=== PATIENT | male | born 1975 | race Caucasian/White ===

== ENCOUNTER 2024-03-10 14:31 | Emergency (ER) | payer BC, SELFPAY ==
[2024-03-10 14:37] VITALS: BP 162/99; PULSE 110; RESP 19; TEMP 36.7; O2SAT 99; BMI 29.0
--- NOTE | 2024-03-10 15:01 | XR_ITS ---
Examination: CT brain head with intravenous. 2-D sagittal reconstructions. 2-D coronal reconstructions. Date and time of exam:March 10, 2024 at 1541 hrs. Indications: Headaches palpable mass behind the right ear noticed beginning 2 months ago CTDI: vol (mGy): 49.1 DLP: (mGycm):994 Technique: Axial sections of the brain have been obtained. 5 mm slice thickness images have been obtained. Intravenous contrast material has not been administered. Low dose protocols were performed. One or more of the following dose reduction techniques were used; automated exposure control, adjustment of the mA and/or KV according to patient size, use of iterative reconstruction technique. 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
[2024-03-10] MEDS: SODIUM CHLORIDE 0.9% 1000 ML 1,000 ML 125 ML IV ×2 (15:16→18:37)
[2024-03-10] MEDS: HYDROmorphone INJ 2 MG/ML VIAL 1 MG IVP ×4 (15:17→21:05)
[2024-03-10] MEDS: ONDANSETRON INJ 2 MG/ML INJ 2 ML 4 MG IV (15:18)
[2024-03-10 15:25] LABS: Basophils # (Auto) 0.1 Thou/mm3 (0.0-0.2); Basophils % (Auto) 1 % (0-2.5); Eosinophils # (Auto) 0.1 Thou/mm3 (0.0-0.5); Eosinophils % (Auto) 1 % (0-10); Hematocrit 46.7 % (41.0-53.0); Hemoglobin 16.5 g/dL (13.5-16.0); Immature Granulocytes % (Auto) 0 % (0-0); Immature Granulocytes Auto 0.04 Thou/mm3 (0.00-0.00); Lymphocytes # (Auto) 2.2 Thou/mm3 (1.0-4.8); Lymphocytes % (Auto) 19 % (10-50); Mean Corpuscular HGB Conc 35.3 g/dl (31.0-37.0); Mean Corpuscular Volume 96 fL (80-100); Monocytes # (Auto) 1.1 Thou/mm3 (0.0-0.8); Monocytes % (Auto) 9 % (0-12); Neutrophils # (Auto) 8.2 Thou/mm3 (1.8-7.7); Neutrophils % (Auto) 71 % (37-80); Nucleated Red Blood Cell % 0 /100 WBC (0); Platelet Count 183 Thou/mm3 (140-440); RDW Standard Deviation 44.5 fL (35.1-43.9); Red Blood Count 4.85 Miln/mm3 (4.50-5.90); White Blood Count 11.6 Thou/mm3 (3.8-10.6)
[2024-03-10 15:41] LABS: Partial Thromboplastin Time 27.1 Seconds (22.0-36.0); Prothrombin Time 11.4 Seconds (9.0-12.2)
[2024-03-10 15:43] VITALS: PULSE 110; RESP 20; O2SAT 98
[2024-03-10 15:44] LABS: Alanine Aminotransferase 28 U/L (10-49); Albumin, Serum 4.9 gm/dL (3.5-5.0); Albumin/Globulin Ratio 1.4 (1.2-2.2); Alkaline Phosphatase 95 U/L (46-116); Anion Gap 14 (7-16); Aspartate Amino Transferase 37 U/L (0-34); BUN/Creatinine Ratio 14 Ratio (12-20); Bilirubin,Total 0.6 mg/dL (0.3-1.2); Blood Urea Nitrogen 13 mg/dL (9-23); Calcium 10.1 mg/dL (8.3-10.6); Calcium (Corrected) 10.1 mg/dL (8.5-10.1); Carbon Dioxide 20.3 mMol/L (20.0-31.0); Chloride 101 mMol/L (98-107); Creatinine (Component) 0.9 mg/dL (0.6-1.3); Estimated Creatinine Clearance 99.6 mL/min (>60); Globulin 3.4 gm/dL (2.3-3.5); Glucose 152 mg/dL (74-106); Osmolality,Calculated 273 (275-295); Potassium 3.4 mMol/L (3.4-5.1); Sodium 135 mMol/L (136-145); Total Protein 8.3 gm/dL (5.7-8.2); eGFR > 60 See Note
[2024-03-10 16:21] VITALS: BP 173/95; PULSE 93; RESP 17; TEMP 36.8; O2SAT 99
[2024-03-10 17:26] VITALS: BP 157/84; PULSE 96; RESP 18; TEMP 36.6; O2SAT 96
--- NOTE | 2024-03-10 18:07 | PC.NURSE ---
[facility] CALLED FOR A REQUEST OF TRANSFER FOR NEURO SURGERY, IMAGES SENT, PACKET FAXED AND TALKED TO [facility] FROM TRANSFER CENTER
--- NOTE | 2024-03-10 20:27 | PD.EDADULT ---
ED General RME/HPI General Chief complaint: Headache Stated complaint: HEADACHE Time Seen by Provider: 03/10/24 14:58 Arrival date/time: 03/10/24 14:31 CC: Headache HPI patient had a bump on the back of his head behind his right ear which has a progressive increase in severity over the past 2 to 3 weeks. Patient states the pain is now become unbearable, patient presents to the ER via EMS who reports stable vital signs. The patient is awake alert oriented no focal deficits. Patient admits he has has rectal cancer stage IV I did not tolerate the last round of chemotherapy per Dr. Beavers's note. Related Data Home Medications ?Medication ?Instructions ?Recorded ?Confirmed trazodone 50 mg tablet 100 mg PO HS 09/11/23 03/10/24 Allergies Allergy/AdvReac Type Severity Reaction Status Date / Time bee venom protein (honey bee) Allergy Severe Anaphylaxis Verified 09/12/23 08:19 cetuximab Allergy Severe Back Pain Verified 09/12/23 08:19 Review of Systems Review of Systems Narrative Review of Systems: GEN: No fever, no chills, no weight loss EYES: No discharge, no visual changes, no pain HEENT: No ear pain, no congestion, no sore throat PULM: No shortness of breath, no cough, no congestion CV: No chest pain, no dyspnea on exertion, no palpitations GI: No nausea, no vomiting, no diarrhea, no pain, no constipation : No frequency, no urgency, no dysuria MUSC/SKEL: No joint pain, no back pain SKIN: No rash PSYCH: No hallucinations, no depression HEME/LYMPH: No easy bleeding or bruising tendencies NEURO: No weakness, + headache Past Medical History Past Medical History NEUROLOGIC: Negative Neurological Disorders or Seizures CARDIAC: Negative Cardiac Disorders or Congestive Heart Failure RESPIRATORY: Negative Chronic Obstructive Pulmonary Disease (COPD) or Asthma GASTROINTESTINAL: Positive Gastrointestinal Disorders, Colorectal Cancer, Gastroesophageal Reflux Disease and Obesity; Negative Hemorrhoids GENITOURINARY: Negative Genitourinary Disorders, Renal Disease or Kidney Stones MUSCULOSKELETAL: Negative Musculoskeletal Disorders ENDOCRINE: Negative Endocrine Disorders, Diabetes Mellitus Type 1 or Diabetes Mellitus Type 2 HEMATOLOGIC: Negative Blood Disorders or Sickle Cell Disease PSYCHO/SOCIAL: Positive Depression and Anxiety OTHER HISTORY: Positive Hospitalization (surgery), Chemotherapy, Radiation Therapy, Chicken Pox, Cancer (colon cx & liver cx) and Colorectal Cancer; Negative Autoimmune Disease, Shingles, Blood Transfusions, Blood Transfusion Reaction or Anesthesia Reactions Family History FAMILY HISTORY: Negative Family Psychiatric Problems, Family Respiratory Disorders, Family Cardiac Disorders, Family Gastrointestinal Problems, Family Cancer, Family Surgery or Family Anesthesia Reaction Surgical History SURGICAL: Positive Abdominal Surgery, Bowel Surgery (colon resection) and Vasectomy Social History SMOKING STATUS: Never smoker SUBSTANCE USE: does not use ED Exam Narrative Physical exam: [General: In moderate discomfort but not in any acute distress Head 3 x 3 cm bulging mass behind the right ear exquisitely tender to palpation soft, no surrounding erythema or edema. No other step-offs abrasions hematomas. HEENT: Eyes pupils are PERRLA EOMs are intact nose no rhinorrhea or otorrhea all other subsystems of HEENT are within acceptable limits Neck is supple nontender swallow symmetrical phonation is normal Chest equal chest rise nontender to palpation Respiratory: Clear to auscultation no wheezes crackles or rubs CV: Rate rhythm is regular no murmurs rubs or clicks Abdomen is distended secondary to body habitus soft nontender no masses positive bowel sounds all 4 quadrants Back: No CVA tenderness no spinous process tenderness from cervical spine thoracic and lumbar spine Skin: Intact no petechiae rash induration ulceration or crepitus Extremities: Moving all extremity against resistance cap refill less than 2 seconds neurosensory intact Neuro: Awake alert oriented x3 Glascow coma 15 no focal deficits] Course Quality Measures none Orders Category Date Time Status CT Screening NOW Care 03/10/24 15:02 Active Saline [Insert IV] NOW Care 03/10/24 15:[address] head/brain w con Stat Exams 03/10/24 15:01 Completed CBC Stat Lab 03/10/24 15:13 Completed CMP [Comprehensive Metabolic Panel] Stat Lab 03/10/24 15:13 Completed PT [Prothrombin Time with INR] Stat Lab 03/10/24 15:13 Completed PTT [Partial Thromboplastin Time] Stat Lab 03/10/24 15:13 Completed HYDROmorphone INJ [Dilaudid Inj] Med 03/10/24 15:01 Discontinued 1 mg IVP X1 ONE HYDROmorphone INJ [Dilaudid Inj] Med 03/10/24 16:19 Discontinued 1 mg IVP X1 ONE HYDROmorphone INJ [Dilaudid Inj] Med 03/10/24 19:27 Discontinued 1 mg IVP X1 ONE HYDROmorphone INJ [Dilaudid Inj] Med 03/10/24 20:53 Discontinued 1 mg IVP X1 ONE Ondansetron Inj [Zofran Inj] Med 03/10/24 15:01 Discontinued 4 mg IV X1 ONE Sodium Chloride 0.9% 1000 ml [Ns] 1,000 ml Med 03/10/24 15:02 Active IV 125 mls/hr Vital Signs Vital signs: Vital Signs Temperature 98.0 F 03/10/24 14:37 Pulse Rate 110 H 03/10/24 14:37 Respiratory Rate 19 03/10/24 14:37 Blood Pressure 162/99 H 03/10/24 14:37 Pulse Oximetry (%) 99 03/10/24 14:37 Oxygen Delivery Method Room Air 03/10/24 14:37 [facility] Patient data External records reviewed:: [facility] previous records and EMS form Clinical information provided by:: patient and EMS Social determinants that could affect healthcare access:: none Patient has the following chronic illnesses:: Rectal cancer stage IV with metastasis How is presenting disease/condition affected by chronic disease/condition?: exacerbated by Evaluation data The following diagnostics were reviewed and interpreted by me:: lab results and radiology exam(s) Lab and/or radiology exams considered but not ordered:: CBC shows a leukocytosis of 11.5 no anemia thrombocytopenia Coags show an INR of 1.0 within acceptable limits CMP shows elevated glucose of 152 mildly elevated sodium no other electrolyte imbalances renal impairment transaminitis or T. bili elevation. CT as interpreted by me read by radiology shows the patient has a large soft tissue likely metastatic mass destroying the right occipital bone extending intracranial and extending externally almost to the surface of the skin measuring 36 x 23 mm. Interpretation Summary: Patient needs neurosurgery at first calls made to [facility] in [place] at 2030 awaiting callback. Medications Medications considered but not ordered:: None Medication administrations:: Medication Administration History Sodium Chloride (Ns) 1,000 mls @ 125 mls/hr IV .Q8H LACIE Stop: 03/11/24 15:01 Last Admin: 03/10/24 18:37 Dose: 125 mls/hr Documented By: Infusion: 03/10/24 18:37 Dose: Infused Documented By: Admin: 03/10/24 15:16 Dose: 125 mls/hr Documented By: CATARINA Discontinued Medications Hydromorphone HCl (Hydromorphone Inj 2 Mg/Ml Vial) 1 mg IVP X1 ONE Stop: 03/10/24 15:02 Last Admin: 03/10/24 15:17 Dose: 1 mg Documented By: CATARINA Hydromorphone HCl (Hydromorphone Inj 2 Mg/Ml Vial) 1 mg IVP X1 ONE Stop: 03/10/24 16:20 Last Admin: 03/10/24 16:27 Dose: 1 mg Documented By: CATARINA Hydromorphone HCl (Hydromorphone Inj 2 Mg/Ml Vial) 1 mg IVP X1 ONE Stop: 03/10/24 19:28 Last Admin: 03/10/24 19:32 Dose: 1 mg Documented By: JIMBO Hydromorphone HCl (Hydromorphone Inj 2 Mg/Ml Vial) 1 mg IVP X1 ONE Stop: 03/10/24 20:54 Last Admin: 03/10/24 21:05 Dose: 1 mg Documented By: CATARINA Ondansetron HCl (Ondansetron Inj 2 Mg/Ml Inj 2 Ml) 4 mg IV X1 ONE; Protocol Stop: 03/10/24 15:02 Last Admin: 03/10/24 15:18 Dose: 4 mg Documented By: CATARINA None Consultations Consultation(s) initiated? (list below): No Diagnosis Differential Diagnosis ED Complaint MDM: Cerebral mass scalp abscess scalp cellulitis Most likely diagnosis given after review of the tests above:: Cerebral mass with bony erosion Admission Indicated Admission indicated?: indicated Explain why admission is indicated or not indicated:: Transfer Admission Request Was there a request for admission?: No Disposition Plan Disposition Plan: Transfer Medical Decision Making Differential Diagnosis Differential Diagnosis: Cerebral mass scalp abscess scalp cellulitis Lab Data 03/10/24 15:13 03/10/24 15:13 Labs: Lab Results 03/10/24 Range/Units 15:13 WBC 11.6 H (3.8-10.6) Thou/mm3 RBC 4.85 (4.50-5.90) Miln/mm3 Hgb 16.5 H (13.5-16.0) g/dL Hct 46.7 (41.0-53.0) % MCV 96 (80-100) fL MCH 34.0 (25.0-35.0) pg MCHC 35.3 (31.0-37.0) g/dl RDW Std Deviation 44.5 H (35.1-43.9) fL Plt Count 183 (140-440) Thou/mm3 Neut % (Auto) 71 (37-80) % Lymph % (Auto) 19 (10-50) % [place] % (Auto) 9 (0-12) % Eos % (Auto) 1 (0-10) % Baso % (Auto) 1 (0-2.5) % Neut # (Auto) 8.2 H (1.8-7.7) Thou/mm3 Lymph # (Auto) 2.2 (1.0-4.8) Thou/mm3 [place] # (Auto) 1.1 H (0.0-0.8) Thou/mm3 Eos # (Auto) 0.1 (0.0-0.5) Thou/mm3 Baso # (Auto) 0.1 (0.0-0.2) Thou/mm3 Immature Gran # (Auto) 0.04 H (0.00-0.00) Thou/mm3 Absolute Nucleated RBC 0.00 (0.00-0.00) Thou/mm3 Immature Gran % 0 (0-0) % Nucleated RBC % 0 (0) /100 WBC PT 11.4 (9.0-12.2) Seconds INR 1.0 (0.9-1.3) APTT 27.1 (22.0-36.0) Seconds Sodium 135 L (136-145) mMol/L Potassium 3.4 (3.4-5.1) mMol/L Chloride 101 (98-107) mMol/L Carbon Dioxide 20.3 (20.0-31.0) mMol/L Anion Gap 14 (7-16) BUN 13 (9-23) mg/dL Creatinine 0.9 (0.6-1.3) mg/dL Estim Creat Clear Calc 99.6 (>60) mL/min eGFR > 60 (60 - ) See Note BUN/Creatinine Ratio 14 (12-20) Ratio Glucose 152 H (74-106) mg/dL Calculated Osmolality 273 L (275-295) Calcium 10.1 (8.3-10.6) mg/dL Corrected Calcium 10.1 (8.5-10.1) mg/dL Total Bilirubin 0.6 (0.3-1.2) mg/dL AST 37 H (0-34) U/L ALT 28 (10-49) U/L Alkaline Phosphatase 95 (46-116) U/L Total Protein 8.3 H (5.7-8.2) gm/dL Albumin 4.9 (3.5-5.0) gm/dL Globulin 3.4 (2.3-3.5) gm/dL Albumin/Globulin Ratio 1.4 (1.2-2.2) Discharge Plan Plan Patient Disposition: [facility] Facility Pt Being Transferred to: [facility] Service Needed for Transfer: Neurosurgery Patient condition on transfer: Stable Prescriptions/Referrals Prescriptions/Med Rec: No Action trazodone 50 mg tablet 100 mg PO HS Patient Comments: TAKE 1 TABLET BY MOUTH EVERY DAY Referrals: Blanca Escobar MD [Primary Care Provider] - In 1 week Problem List Clinical Impression: Skull mass, Headache Patient/Caregiver Discharge Instructions Print Language: Bulgarian Stand Alone Forms: Sujey Award Info., Patient Portal Info Letter PA/ANIMAL SCIENCE INSTRUCTOR Supervising Physician PA/ANIMAL SCIENCE INSTRUCTOR Supervising Physician: Jason Barr ENP
--- NOTE | 2024-03-10 21:39 | PC.NURSE ---
2108 PT ACCEPTED TO [facility] BY DR NULL, ED TO ED. REPORT [id number].
== END 2024-03-10 22:17 | disposition short-term general hospital (02) ==
PROVIDERS: Registered Nurse General Practice; Emergency Provider Emergency Medicine; PCP Pediatrics
DX: R22.0 Localized swelling, mass and lump, head (principal)
CPT/HCPCS: 36415; 70460; 80053; 85025; 85610; 85730; 96361; 96374; 96375; 99285; A4649; J2405; J3490; J7030; Q9967